=== PATIENT | female | born 1985 | race Caucasian/White ===

== ENCOUNTER 2019-09-10 08:33 | Emergency (ER) | payer BC, OTHER ==
[2019-09-10] MEDS ORDERED: IBUPROFEN 600 MG TABLET PO ONE (08:41)
--- NOTE | 2019-09-10 08:43 | Emergency Department Record ---
History of Present Illness - General Stated complaint: KNEE INJURY Time Seen by Provider: 09/10/19 08:37 Source: Patient Mode of Arrival: Ambulatory Limitations: No limitations - History of Present Illness Initial comments: 34 yo female presents with right knee pain. She stats she was at work at about 5am when the pain started. She was bending down squatting and felt like the knee locked up and gave out. She reports no formal knee diagnosis in the past. She does have occasional non specific knee pain at times. No swelling, fever, warmth. No other areas of pain or complaints. MD Complaint: Joint pain -: Hour(s) Location: Right -: Yes Arthralgia Radiation: Distal Quality: Aching Consistency: Constant Improves with: Immobilization Worsens with: Palpation, Walking, Weight bearing Associated Symptoms: Denies other symptoms - Related Data Home Medications Medication Instructions Recorded Confirmed Last Taken Bupropion HCl [Wellbutrin Xl] 150 mg PO BID 09/10/19 09/10/19 Unknown Citalopram Hydrobromide [Celexa] 40 mg PO DAILY 09/10/19 09/10/19 Unknown Esomeprazole Magnesium [Nexium] 20 mg PO DAILY 09/10/19 09/10/19 Unknown Insulin Glargine/Lixisenatide 30 ml SQ QHS 09/10/19 09/10/19 Unknown [Soliqua 100 Unit-33 Mcg/ml Pen] Metformin HCl 1,000 mg PO BID 09/10/19 09/10/19 Unknown Allergies Allergy/AdvReac Type Severity Reaction Status Date / Time cephalexin [From Keflex] Allergy RASH Verified 09/10/19 08:42 meperidine [From Demerol] Allergy DIFFICULTY Verified 09/10/19 08:42 BREATHING methylprednisolone Allergy HIVES Verified 09/10/19 08:42 [From Depo-Medrol] erythromycin base AdvReac VOMITING Verified 09/10/19 08:42 Penicillins AdvReac VOMITING Verified 09/10/19 08:42 Review of Systems Constitutional: Denies: Chills, Fever, Malaise, Weakness Eyes: Denies: Eye discharge, Eye pain, Vision change ENT: Denies: Congestion, Throat pain Respiratory: Denies: Cough, Dyspnea Cardiovascular: Denies: Chest pain, Palpitations, Syncope Endocrine: Denies: Fatigue Gastrointestinal: Denies: Abdominal pain, Constipation, Nausea, Vomiting Genitourinary: Denies: Dysuria, Urgency Musculoskeletal: Reports: Arthralgia, Joint swelling. Denies: Back pain, Myalgia Skin: Denies: Bruising, Change in color, Rash Neurological: Denies: Headache Psychiatric: Denies: Anxiety Hematological/Lymphatic: Denies: Easy bleeding, Easy bruising Physical Exam - General General Appearance: Alert, Oriented x3, Cooperative, No acute distress Limitations: No limitations - Head Head exam: Atraumatic, Normal inspection - Eye Eye exam: Normal appearance. negative: Conjunctival injection - ENT ENT exam: Normal exam Ear exam: Normal external inspection Nasal Exam: Normal inspection Mouth exam: Normal external inspection - Neck Neck exam: Normal inspection - Cardiovascular Peripheral Pulses: 2+: Dorsalis Pedis (R) - Rectal Rectal exam: Deferred - exam: Deferred - Extremities Extremities exam: Normal inspection, Normal capillary refill, Tenderness. negative: Calf tenderness, Joint swelling, Pedal edema Image of Full Body: 1 - normal inspection, tender medial and lateral knee, patella is intact, quads intact, no edema or effusion, pain with medial, lateral, AP stress but stable without laxity - Back Back exam: Reports: Full ROM - Neurological Neurological exam: Alert, Oriented X3 - Psychiatric Psychiatric exam: Normal affect, Normal mood - Skin Skin exam: Dry, Intact, Normal color, Warm Course - Reevaluation(s) Reevaluation #1: 09/10/19 09:34 The Knee XR was reviewed No acute process Given the pain she will be immobilized for rest and support Disposition Disposition: Discharge Clinical Impression: Right knee sprain Qualifiers: Encounter type: sequela Involved ligament of knee: unspecified ligament Qualified Code(s): S83.91XS - Sprain of unspecified site of right knee, sequela Disposition: Home, Self-Care Condition: (1) Good Instructions: Knee Sprain (ED) Additional Instructions: Review this ER visit and the tests performed with your family doctor Call your doctor for the next available follow up appointment if the knee pain continues more than a week Return to the ER for a recheck immediately if worse, any new concerns or questions Use the crutches and brace for support and rest for your knee Referrals: Jorge Del Rio [DOCTOR OF OSTEOPATH] - Time of Disposition: 09:36 Quality - Quality Measures Quality Measures: N/A - Blood Pressure Screening Does Patient Have Any of the Following: No Blood Pressure Classification: Hypertensive Reading Systolic Measurement: 129 Diastolic Measurement: 91 Screening for High Blood Pressure: < Pre-Hypertensive BP, F/U Documented > [[id number]] Pre-Hypertensive Follow-up Interventions: Referral to alternative/primary care provider.
--- NOTE | 2019-09-10 09:43 | RADIOLOGY REPORT ---
EXAMINATION: Right Knee Complete, Four or More Views EXAM DATE: 09/10/2019 9:11 AM TECHNIQUE: Frontal, lateral, oblique and sunrise view INDICATION: right knee pain after bending COMPARISON: None ENCOUNTER: Initial FINDINGS: There is no bone or joint abnormality. IMPRESSION: Normal exam. Follow-up MRI if symptoms persist Dictated by: Toney Heller MD on 09/10/2019 9:41 AM. .
== END 2019-09-10 10:13 | disposition home or self-care (01) ==
LOC: ER 08:33
DX: S83.91XA Sprain of unspecified site of right knee, initial encounter (principal); X50.1XXA Overexertion from prolonged static or awkward postures, initial encounter; Y99.0 Civilian activity done for income or pay
CPT/HCPCS: 99283